=== PATIENT | female | born 1980 ===

== ENCOUNTER 2016-10-10 06:41 | Emergency (ER) | payer OTHER ==
[2016-10-10 06:41] VITALS: BMI 38.4
[2016-10-10 06:58] VITALS: BP 115/64; PULSE 74; RESP 18; TEMP 98.2; O2SAT 99
--- NOTE | 2016-10-10 07:06 | ED PDOC ---
HPI: Abdomen Time Seen by Provider: 10/10/16 06:56 Chief Complaint (Nursing): Abdominal Pain History Per: Patient (Diarrhea assoc with lower abd cramping x 2 days. No fever or bleeding. No nausea or vomiting. 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 denies: Fever, Nausea, Vomiting Exacerbating Factors: None Alleviating Factors: None Abnormal Vaginal Bleeding: No Past Medical History Vital Signs: Last Vital Signs Temp 98.2 F 10/10/16 06:54 Pulse 74 10/10/16 06:54 Resp 18 10/10/16 06:54 BP 115/64 10/10/16 06:54 Pulse Ox 99 10/10/16 06:54 - Medical History PMH: Bipolar Disorder, Depression, Diverticulitis, Migraine Denies: Chronic Kidney Disease - Surgical History Surgical History: (x 1) - Family History Family History: States: Unknown Family Hx, [place] (mother at 30 years old, required bypass at age 40) - Immunization History Hx Tetanus Toxoid Vaccination: No Hx Influenza Vaccination: No Hx Pneumococcal Vaccination: No - Home Medications Home Medications: Ambulatory Orders Medication Instructions Recorded Nitrofurantoin Macrocrystals 100 mg PO BID #14 cap 05/11/16 [Macrobid] Naproxen [Naprosyn] 500 mg PO BID PRN #20 tablet 07/16/16 Dicyclomine [Bentyl] 20 mg PO BID PRN #30 tab 07/21/16 Famotidine [Pepcid] 40 mg PO DAILY PRN #10 tab 07/21/16 Ondansetron [Zofran] 4 mg PO Q8H PRN #20 tab 07/21/16 Atropine/Diphenoxylate [Lonox 1 tab PO Q8 #10 tab 10/10/16 0.025 MG-2.5 MG] Dicyclomine [Dicyclomine HCl] 10 mg PO Q8 #10 cap 10/10/16 - Allergies Allergies/Adverse Reactions: Allergies Allergy/AdvReac Type Severity Reaction Status Date / Time No Known Allergies Allergy Verified 05/11/16 09:23 Review of Systems Constitutional: Negative for: Fever Gastrointestinal: Positive for: Abdominal Pain. Negative for: Nausea, Vomiting , Diarrhea, Melena, Hematochezia Genitourinary Female: Negative for: Dysuria, Frequency Physical Exam - Physical Exam Appears: Positive for: Non-toxic, No Acute Distress Skin: Positive for: Normal Color, Warm, DRY Gastrointestinal/Abdominal: Positive for: Bowel Sounds, Soft. Negative for: Tenderness Extremity: Positive for: Normal ROM Neurologic/Psych: Positive for: Alert, Oriented - ECG O2 Sat by Pulse Oximetry: 99 Medical Decision Making Medical Decision Making: Pt declines blood work or w/u. Requesting Rx. Disposition - Clinical Impression Clinical Impression: Diarrhea - Patient ED Disposition Is Patient to be Admitted: No Counseled Patient/Family Regarding: Diagnosis, Need For Followup, Rx Given - Disposition Referrals: [facility] [Outside] Disposition: Routine/Home Disposition Time: 07:07 Condition: FAIR Prescriptions: Dicyclomine [Dicyclomine HCl] 10 mg PO Q8 #10 cap Atropine/Diphenoxylate [Lonox 0.025 MG-2.5 MG] 1 tab PO Q8 #10 tab Instructions: Gastroenteritis (ED)
== END 2016-10-10 07:24 | disposition home or self-care (01) ==
LOC: H.ER 06:41
DX: R19.7 Diarrhea, unspecified (principal); R10.9 Unspecified abdominal pain; F31.9 Bipolar disorder, unspecified

== ENCOUNTER 2016-11-22 18:46 | Emergency (ER) | payer OTHER ==
[2016-11-22 18:47] VITALS: BMI 38.4
[2016-11-22 19:13] VITALS: BP 116/74; PULSE 75; RESP 16; TEMP 98; O2SAT 100
--- NOTE | 2016-11-22 20:41 | ED PDOC ---
Upper Extremity Pain/Injury Time Seen by Provider: 11/22/16 19:42 Chief Complaint (Nursing): Upper Extremity Problem/Injury Chief Complaint (Provider): Neck Pain/Right Elbow Pain History Per: Patient History/Exam Limitations: no limitations Current Symptoms Are (Timing): Still Present Additional Complaint(s): Diamond Leija is a 36 year old female that presents to the ED with a chief complaint of right-sided neck pain that radiates down to her right elbows. Patient states that she took Tylenol in an attempt to relieve her pain, but that it did not help. She reports that the pain worsens with movements, and denies any injury. Past Medical History Reviewed: Historical Data, Nursing Documentation, Vital Signs Vital Signs: Last Vital Signs Temp 98.0 F 11/22/16 19:12 Pulse 75 11/22/16 19:12 Resp 16 11/22/16 19:12 BP 116/74 11/22/16 19:12 Pulse Ox 100 11/22/16 19:12 - Medical History PMH: Bipolar Disorder, Depression, Diverticulitis, Migraine Denies: Chronic Kidney Disease - Surgical History Surgical History: (x 1) - Family History Family History: States: Unknown Family Hx, [place] (mother at 30 years old, required bypass at age 40) - Immunization History Hx Tetanus Toxoid Vaccination: No Hx Influenza Vaccination: No Hx Pneumococcal Vaccination: No - Home Medications Home Medications: Ambulatory Orders Medication Instructions Recorded Nitrofurantoin Macrocrystals 100 mg PO BID #14 cap 05/11/16 [Macrobid] Naproxen [Naprosyn] 500 mg PO BID PRN #20 tablet 07/16/16 Dicyclomine [Bentyl] 20 mg PO BID PRN #30 tab 07/21/16 Famotidine [Pepcid] 40 mg PO DAILY PRN #10 tab 07/21/16 Ondansetron [Zofran] 4 mg PO Q8H PRN #20 tab 07/21/16 Atropine/Diphenoxylate [Lonox 1 tab PO Q8 #10 tab 10/10/16 0.025 MG-2.5 MG] Dicyclomine [Dicyclomine HCl] 10 mg PO Q8 #10 cap 10/10/16 Chlorzoxazone [Lorzone] 750 mg PO Q12H #10 tab 11/22/16 Ibuprofen [Motrin Tab] 800 mg PO Q6H PRN #20 tab 11/22/16 - Allergies Allergies/Adverse Reactions: Allergies Allergy/AdvReac Type Severity Reaction Status Date / Time No Known Allergies Allergy Verified 11/22/16 19:12 Review of Systems Musculoskeletal: Positive for: Neck Pain (right-sided), Arm Pain (right elbow pain) Physical Exam - Reviewed Nursing Documentation Reviewed: Yes Vital Signs Reviewed: Yes - Physical Exam Appears: Positive for: Non-toxic, No Acute Distress Head Exam: Positive for: ATRAUMATIC, NORMOCEPHALIC Skin: Positive for: Normal Color, Warm Eye Exam: Positive for: Normal appearance ENT: Positive for: Normal ENT Inspection Neck: Negative for: Normal (mild tenderness of C-spine) Cardiovascular/Chest: Positive for: Regular Rate, Rhythm Respiratory: Positive for: Normal Breath Sounds. Negative for: Accessory Muscle Use, Respiratory Distress Back: Negative for: Normal Inspection (TTP right trapezius) Extremity: Positive for: Normal ROM. Negative for: Tenderness Neurologic/Psych: Positive for: Alert, Oriented - ECG O2 Sat by Pulse Oximetry: 100 (RA) Pulse Ox Interpretation: Normal Medical Decision Making Medical Decision Making: Impression: Right-Sided Neck Pain Plan: * Flexeril 10 mg PO * Ibuprofen 600 mg PO * X-Ray C-Spine * Reevaluation Pt reports feeling better on re-evaluation. C-spine x-ray without fracture, normal height and no displacement. Scribe Attestation: Documented by Vee Chatman, acting as a scribe for Ana Bills PA-C. Provider Scribe Attestation: All medical record entries made by the Scribe were at my direction and personally dictated by me. I have reviewed the chart and agree that the record accurately reflects my personal performance of the history, physical exam, medical decision making, and the department course for this patient. I have also personally directed, reviewed, and agree with the discharge instructions and disposition. Disposition - Clinical Impression Clinical Impression: Musculoskeletal neck pain - Patient ED Disposition Is Patient to be Admitted: No Counseled Patient/Family Regarding: Diagnosis, Need For Followup, Rx Given - Disposition Referrals: [facility] [Outside] Disposition: Routine/Home Disposition Time: 21:33 Condition: GOOD Prescriptions: Chlorzoxazone [Lorzone] 750 mg PO Q12H #10 tab Ibuprofen [Motrin Tab] 800 mg PO Q6H PRN #20 tab PRN Reason: Pain Instructions: Cervical Radiculopathy (ED)
--- NOTE | 2016-11-23 10:24 | RAD ---
PROCEDURE: Cervical spine 11/22/2016. AP (performed with head in the extended gutierrez position) lateral and open-mouth views of the cervical spine performed. Note that the examination is limited due to partial obscuration of the odontoid by overlying incisor teeth and occiput in the open-mouth in the projection however the dens is partially visible in extended gutierrez view HISTORY: Pain. COMPARISON: None. FINDINGS: BONES: No evidence of acute displaced fracture nor dislocation. The osseous structures appear grossly intact so far as can be seen within limitations of the exam. There is straightening of the normal cervical lordosis which could be due to patient positioning however underlying element of muscle spasm may contribute. DISC SPACES: Disc space heights maintained. Small marginal anterior osteophyte formation noted at several levels of. SOFT TISSUES: Normal. No prevertebral soft tissue swelling. OTHER FINDINGS: None. IMPRESSION: Slightly limited study demonstrating no acute fractures. . Minor multilevel anterior osteophyte formation. . There is also slight straightening of the normal cervical lordosis which could be due to patient positioning in however underlying element of muscle spasm may contribute.
== END 2016-11-22 21:43 | disposition home or self-care (01) ==
LOC: H.ER 18:46
DX: M54.2 Cervicalgia (principal); M79.601 Pain in right arm; F31.9 Bipolar disorder, unspecified

== ENCOUNTER 2017-03-05 11:20 | Emergency (ER) | payer OTHER ==
[2017-03-05 11:20] VITALS: BMI 38.4
[2017-03-05 11:55] VITALS: PULSE 73; RESP 20; TEMP 98.5; O2SAT 99
--- NOTE | 2017-03-05 12:20 | ED PDOC ---
Lower Extremity Pain/Injury Time Seen by Provider: 03/05/17 12:09 Chief Complaint (Nursing): Hip Pain Chief Complaint (Provider): Right hip pain History Per: Patient History/Exam Limitations: no limitations Onset/Duration Of Symptoms: Days (1+ week) Current Symptoms Are (Timing): Still Present Severity: Moderate Additional History Per: Patient Additional Complaint(s): The patient is a 37yo female, past medical history of celiac's disease, presents to the ED for evaluation of right hip pain, present for the past week. Patient reports the pain is due to a "lump" on her right hip area and is worse when she ambulates. She denies any injury or trauma to the area and also denies any associated fever or chills. Patient states she has been taking Ibuprofen for her pain with minimal relief, states last dose was yesterday. Patient offers no additional medical complaints. PCP: Dr. Chen Past Medical History Reviewed: Historical Data, Nursing Documentation, Vital Signs Vital Signs: Last Vital Signs Temp 98.5 F 03/05/17 11:52 Pulse 73 03/05/17 11:52 Resp 20 03/05/17 11:52 BP Pulse Ox 99 03/05/17 11:52 - Medical History PMH: Bipolar Disorder, Depression, Diverticulitis, Migraine Denies: Chronic Kidney Disease - Surgical History Surgical History: (x 1) - Family History Family History: States: Unknown Family Hx, [place] (mother at 30 years old, required bypass at age 40) - Immunization History Hx Tetanus Toxoid Vaccination: No Hx Influenza Vaccination: No Hx Pneumococcal Vaccination: No - Home Medications Home Medications: Ambulatory Orders Medication Instructions Recorded Nitrofurantoin Macrocrystals 100 mg PO BID #14 cap 05/11/16 [Macrobid] Naproxen [Naprosyn] 500 mg PO BID PRN #20 tablet 07/16/16 Dicyclomine [Bentyl] 20 mg PO BID PRN #30 tab 07/21/16 Famotidine [Pepcid] 40 mg PO DAILY PRN #10 tab 07/21/16 Ondansetron [Zofran] 4 mg PO Q8H PRN #20 tab 07/21/16 Atropine/Diphenoxylate [Lonox 1 tab PO Q8 #10 tab 10/10/16 0.025 MG-2.5 MG] Dicyclomine [Dicyclomine HCl] 10 mg PO Q8 #10 cap 10/10/16 Chlorzoxazone [Lorzone] 750 mg PO Q12H #10 tab 11/22/16 Ibuprofen [Motrin Tab] 800 mg PO Q6H PRN #20 tab 11/22/16 - Allergies Allergies/Adverse Reactions: Allergies Allergy/AdvReac Type Severity Reaction Status Date / Time gluten Allergy NAUSEA Verified 03/05/17 11:55 Review of Systems ROS Statement: Except As Marked, All Systems Reviewed And Found Negative Musculoskeletal: Positive for: Other (right hip pain) Physical Exam - Reviewed Nursing Documentation Reviewed: Yes Vital Signs Reviewed: Yes - Physical Exam Appears: Positive for: Well, Non-toxic, No Acute Distress Head Exam: Positive for: ATRAUMATIC, NORMAL INSPECTION, NORMOCEPHALIC Skin: Positive for: Normal Color Eye Exam: Positive for: Normal appearance Neck: Positive for: Normal Respiratory: Negative for: Respiratory Distress Extremity: Positive for: Normal ROM, Tenderness (diffuse tenderness to right pelvic bone). Negative for: Deformity Neurologic/Psych: Positive for: Alert, Oriented. Negative for: Motor/Sensory Deficits - ECG O2 Sat by Pulse Oximetry: 99 (RA) Pulse Ox Interpretation: Normal Medical Decision Making Medical Decision Making: Time: 1215 Impression: Right hip pain Plan: -- XR Right Hip -- Flexeril 10 mg PO -- Motrin 600 mg PO Reassess Time: 1326 XR as read by provider indicates no fractures or dislocations; patient's pain is most likely musculoskeletal. Hand written prescription for motrin and flexeril given to patient. Patient also advised to follow up with her PCP. Patient expresses understanding and is agreeable; stable for d/c home. Scribe Attestation: Documented by Carey Self acting as a scribe for KYAW Lott Provider Attestation: All medical record entries made by the Scribe were at my direction and personally dictated by me. I have reviewed the chart and agree that the record accurately reflects my personal performance of the history, physical exam, medical decision making, and the department course for this patient. I have also personally directed, reviewed, and agree with the discharge instructions and disposition. Disposition - Clinical Impression Clinical Impression: Hip pain - Patient ED Disposition Is Patient to be Admitted: No Counseled Patient/Family Regarding: Studies Performed, Diagnosis, Need For Followup, Rx Given - Disposition Referrals: Huy Kay MD [Medical Doctor] - Disposition: Routine/Home Disposition Time: 13:26 Condition: STABLE Instructions: Hip Pain (ED)
--- NOTE | 2017-03-05 14:21 | RAD ---
PROCEDURE: Right Hip Radiographs. HISTORY: right hip pain, no trauma COMPARISON: Comparison made with plain film radiographs of right hip 04/01/2016 is thes FINDINGS: BONES: Normal. No fracture. JOINTS: Joint spaces preserved. Tiny osteophyte seen arising from superolateral margins of both acetabular roofs left slightly larger than right thes thes thes cyst SOFT TISSUES: Normal. OTHER FINDINGS: None. IMPRESSION: Normal radiographs of right hip.
== END 2017-03-05 13:36 | disposition home or self-care (01) ==
LOC: H.ER 11:20
DX: M25.551 Pain in right hip (principal); F31.9 Bipolar disorder, unspecified